=== PATIENT | male | born 1975 | race Caucasian/White ===

== ENCOUNTER 2020-11-03 21:01 | Emergency (ER) | payer BC, OTHER ==
[2020-11-03 21:48] LABS: HEMOGLOBIN 16.8 gm/dl (14.0-17.5); RED BLOOD COUNT 5.72 M/UL (4.20-5.50); WHITE BLOOD COUNT 13.7 K/UL (4.5-11.0)
[2020-11-03 22:47] LABS: BUN/CREATININE RATIO 16 (0-10)
== END 2020-11-04 00:50 | disposition home or self-care (01) ==
LOC: ER1 21:01
PROVIDERS: Physician Assistant
DX: K04.7 Periapical abscess without sinus (principal); K02.9 Dental caries, unspecified; F17.210 Nicotine dependence, cigarettes, uncomplicated
CPT/HCPCS: 71045; 80053; 82550; 82553; 83874; 84484; 85025; 93005; 96374; 96375; 99284; J2060; J2405

== ENCOUNTER 2020-11-24 05:44 | Emergency (ER) | payer OTHER ==
[2020-11-24 06:54] LABS: HEMOGLOBIN 16.4 gm/dl (14.0-17.5); RED BLOOD COUNT 5.53 M/UL (4.20-5.50); WHITE BLOOD COUNT 9.4 K/UL (4.5-11.0)
[2020-11-24 07:20] LABS: BUN/CREATININE RATIO 13 (0-10)
[2020-11-24] MEDS ORDERED: PREDNISONE 50 M50 MG PO (08:57)
[2020-11-24] MEDS ORDERED: BENADRYL 25MG C25 MG PO (08:57)
== END 2020-11-24 09:56 | disposition home or self-care (01) ==
LOC: ER1 05:44
PROVIDERS: Emergency Medicine
DX: R21 Rash and other nonspecific skin eruption (principal); F41.9 Anxiety disorder, unspecified; F17.200 Nicotine dependence, unspecified, uncomplicated
CPT/HCPCS: 80053; 82550; 82553; 83874; 84484; 85025; 96372; 99283; J2930

== ENCOUNTER 2021-12-07 08:49 | Emergency (ER) | payer OTHER ==
[~2021-12-07 08:49] MED LIST: BENADRYL 25MG C25 MG PO; PREDNISONE 50 M50 MG PO
[2021-12-07 09:43] LABS: HEMOGLOBIN 16.8 gm/dl (14.0-17.5); RED BLOOD COUNT 5.49 M/UL (4.20-5.50); WHITE BLOOD COUNT 9.5 K/UL (4.5-11.0)
[2021-12-07 10:09] LABS: BUN/CREATININE RATIO 20 (0-10)
[2021-12-07] MEDS ORDERED: BENTYL 20MG TAB20 MG PO (12:45)
[2021-12-07] MEDS ORDERED: PROTONIX40 MG PO (12:45)
== END 2021-12-07 13:10 | disposition home or self-care (01) ==
LOC: ER1 08:49
PROVIDERS: Physician Assistant
DX: R10.10 Upper abdominal pain, unspecified (principal); K21.9 Gastro-esophageal reflux disease without esophagitis; F17.200 Nicotine dependence, unspecified, uncomplicated
CPT/HCPCS: 80053; 81001; 82150; 83690; 85025; 96374; 99284; C9113; Q9967

== ENCOUNTER 2021-12-28 18:18 | Emergency (ER) | payer OTHER ==
[~2021-12-28 18:18] MED LIST changes: +BENTYL 20MG TAB20 MG PO; +PROTONIX40 MG PO
== END 2021-12-28 20:40 | disposition home or self-care (01) ==
LOC: ER1 18:18
DX: S90.32XA Contusion of left foot, initial encounter (principal); S90.02XA Contusion of left ankle, initial encounter; W19.XXXA Unspecified fall, initial encounter; F17.200 Nicotine dependence, unspecified, uncomplicated
CPT/HCPCS: 73610; 73630; 99283

== ENCOUNTER 2022-07-29 10:06 | Observation (INO) | payer OTHER ==
[~2022-07-29] VITALS: Ht 175.3 cm; Wt 72.6 kg
[~2022-07-29 10:06] MED LIST changes: +BUPRENORPHIN-N1 EACH SL
[2022-07-29 12:09] LABS: HEMOGLOBIN 12.5 gm/dl (14.0-17.5); RED BLOOD COUNT 4.18 M/UL (4.20-5.50); WHITE BLOOD COUNT 7.9 K/UL (4.5-11.0)
[2022-07-29 12:27] LABS: BUN/CREATININE RATIO 14 (0-10)
[2022-07-29] MEDS ORDERED: TESTOSTERO200 MG/1 M IM (19:04)
[2022-07-29] MEDS ORDERED: VENLAFAXINE HC150 MG PO (19:05)
[2022-07-29] MEDS ORDERED: PROTONIX40 MG PO (19:06)
[2022-07-29] MEDS ORDERED: BUPROPION XL150 MG PO (19:06)
[2022-07-30 03:12] LABS: HEMOGLOBIN 12.8 gm/dl (14.0-17.5); RED BLOOD COUNT 4.23 M/UL (4.20-5.50); WHITE BLOOD COUNT 7.7 K/UL (4.5-11.0)
[2022-07-30 03:18] LABS: BUN/CREATININE RATIO 14 (0-10)
--- NOTE | 2022-07-30 05:29 | NUR ---
PATIENT INSTRUCTED TO USE CALL DEAN IF IV PUMP STARTS TO BEEP. EARLIER HE KEPT TURNING THE PUMP OFF. I DID ENABLE THE LOCK SWITCH ON BACK OF PUMP AT THIS TIME.
[2022-07-30] MEDS ORDERED: VENLAFAXINE HCL75 M1 PO (12:12)
[2022-07-30] MEDS ORDERED: DULOXETINE HCL30 MG PO (12:15)
[2022-07-30] MEDS ORDERED: TRAZODONE HCL100 MG PO (12:16)
[2022-07-30] MEDS ORDERED: TYLENOL EXTRA500 MG PO (14:04)
[2022-07-30] MEDS ORDERED: TAB-A-VITE TA400 MC1 PO (14:04)
[2022-07-30] MEDS ORDERED: AMOX TR-K CLV1 EAC4 PO (14:11)
[2022-07-30] MEDS ORDERED: ZYVOX600 MG PO (14:11)
== END 2022-07-30 14:59 | disposition home or self-care (01) ==
LOC: ER1 10:06 → CDU 16:25 → M/S 20:04
PROVIDERS: Physician Assistant; ADMIT Internal Medicine
DX: L03.116 Cellulitis of left lower limb (principal); M71.22 Synovial cyst of popliteal space [Baker], left knee; S80.12XA Contusion of left lower leg, initial encounter; R73.03 Prediabetes; R74.8 Abnormal levels of other serum enzymes; R79.1 Abnormal coagulation profile; D64.9 Anemia, unspecified; M25.462 Effusion, left knee; M10.9 Gout, unspecified; F41.9 Anxiety disorder, unspecified; F32.A Depression, unspecified; F10.10 Alcohol abuse, uncomplicated; F17.210 Nicotine dependence, cigarettes, uncomplicated; Z79.890 Hormone replacement therapy; Z79.899 Other long term (current) drug therapy; Z79.891 Long term (current) use of opiate analgesic; W19.XXXA Unspecified fall, initial encounter; Y92.009 Unspecified place in unspecified non-institutional (private) residence as the place of occurrence of the external cause
CPT/HCPCS: 36415; 73564; 73590; 80048; 80053; 85025; 85379; 85610; 85652; 86140; 87040; 93971; 96372; 96374; 96375; 96376; 99284; G0378; J0692; J1650; J1885; J2405; J3370; J7070

== ENCOUNTER → 2022-08-01 | Outpatient (CLI) | payer OTHER ==
[~2022-08-01] MED LIST changes: +AMOX TR-K CLV1 EAC4 PO; +BUPROPION XL150 MG PO; +DULOXETINE HCL30 MG PO; +TAB-A-VITE TA400 MC1 PO; +TESTOSTERO200 MG/1 M IM; +TRAZODONE HCL100 MG PO; +TYLENOL EXTRA500 MG PO; +VENLAFAXINE HC150 MG PO; +VENLAFAXINE HCL75 M1 PO; +ZYVOX600 MG PO
[2022-08-01 11:58] LABS: RED BLOOD COUNT 4.64 M/UL (4.20-5.50)
[2022-08-01 12:02] LABS: WHITE BLOOD COUNT 5.5 K/UL (4.5-11.0)
[2022-08-01 12:30] LABS: BUN/CREATININE RATIO 12 (0-10)
[2022-08-02 10:14] LABS: LYME TOTAL ANTIBODY CIA Negative (Negative)
== END ==
LOC: LAB 11:07
PROVIDERS: Nurse Practitioner Primary Care
DX: L03.90 Cellulitis, unspecified (principal)
CPT/HCPCS: 36415; 80053; 85027; 85652; 86140; 86618